=== PATIENT | male | born 1950 | race Caucasian/White ===

== ENCOUNTER → 2020-05-03 15:41 | Outpatient (BNVA) | payer OTHER, SELFPAY | PROVIDERS: Referring Provider Family Medicine; Visit Provider Podiatrist Foot & Ankle Surgery | DX: M79.672 Pain in left foot (principal) | CPT/HCPCS: 73630 ==

== ENCOUNTER 2020-05-03 16:30 | Outpatient (CLI) | payer OTHER, SELFPAY | END 2020-05-03 16:31 | disposition home or self-care (01) | LOC: SPT 16:31 | PROVIDERS: Visit Provider Podiatrist Foot & Ankle Surgery | DX: Z46.89 Encounter for fitting and adjustment of other specified devices (principal); M65.28 Calcific tendinitis, other site | CPT/HCPCS: 97760; L4397 ==

== ENCOUNTER 2020-05-13 15:47 | Observation (INO) | payer OTHER, SELFPAY ==
[2020-05-13] VITALS (11 sets, daily range): BP systolic 128–174; BP diastolic 90–95; PULSE 102–119; RESP 16–28; TEMP 36.9–37.1; O2SAT 86–95; BMI 23.0
--- NOTE | 2020-05-13 16:17 | ECG_ITS ---
[facility] Test Date: 2020-05-13 Pat Name: Lex Cheng Department: Room: Gender: Male Code Inspector: : 1950 Requested By: Laron Spicer Order Number: [id number] Jani MD: SALLY TRIANA Measurements Intervals [place] Rate: 105 P: 63 FL: 167 QRS: 64 QRSD: 93 T: 6 QT: 321 QTc: 425 Interpretive Statements SINUS TACHYCARDIA POSSIBLE LEFT ATRIAL ENLARGEMENT [-0.1mV P WAVE IN V1/V2] ST DEVIATION AND MODERATE T-WAVE ABNORMALITY, CONSIDER ANTERIOR ISCHEMIA [-0.1+ mV T WAVE IN V3/V4] No previous ECG available for comparison Electronically Signed On 05-14-2020 19:29:37 AUTOMATIC HEAD SAWYER by SALLY TRIANA [id number]
--- NOTE | 2020-05-13 16:17 | XR_ITS ---
WS: [id number] XR chest 1V portable [id number] REASON FOR EXAM: sob FINDINGS: The heart and mediastinum are within normal limits. There is blunting of the right costophrenic angle with flattening of the lateral right hemidiaphragma tic contour. There are interstitial changes in the right lower lung and the left lower lung. There is an old healed fracture of the right clavicle. There are changes of degenerative spondylosis in the mid and lower thoracic spine. XR/XR chest 1V portable [id number] IMPRESSION: Lung and pleural abnormalities as described above. Without prior films definiti ve diagnosis is limited however these changes are more likely chronic in nature .
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
[2020-05-13 17:05] LABS: ABG PCO2 56.5 mmHg (35-45); Arterial Blood Gas Hematocrit 50.5 % (42-52); Blood Gas Allen Test Pos; Blood Gas Sample Type Arterial; Carboxyhemoglobin 4.2 %THgb (0.4-20.1); HGB O2 Sat 89.2 % (95-100); Methemoglobin 0.3 % (0.4-1.5); PO2 ABG 59.3 mmHg (80.0-100.0); Total Hemoglobin 16.5 g/dL (14-18)
[2020-05-13 17:07] LABS: HCO3 ABG 35.1 mmol/L (22-26)
[2020-05-13 17:08] LABS: Blood Gas Operator Identificat ED; Blood Gas Sample Site Radial, left; Oxygen Device NC
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
[2020-05-13 18:11] LABS: SARS Covid-2 Antigen Negative (Negative)
[2020-05-13 18:31] LABS: Basophils # 0.1 10^3/uL (0.0-0.1); Basophils % 0.6 %; Eosinophils # 0.1 10^3/uL (0.0-0.8); Eosinophils % 1.1 %; Hematocrit 56.5 % (42.0-52.0); Hemoglobin 16.8 g/dL (11.7-16.6); Lymphocytes % 10.4 %; Mean Corpuscular HGB Conc 29.7 g/dL (30.0-36.0); Mean Corpuscular Hemoglobin 28.3 pg (28.0-34.0); Mean Corpuscular Volume 95.3 fL (80-94); Mean Platelet Volume 9.1 fL (7.4-10.4); Monocytes # 0.6 10^3/uL (0.2-0.9); Monocytes % 6.3 %; Neutrophils # 8.01 10^3/uL (1.8-7.7); Neutrophils % 81.3 %; Nucleated Red Blood Cells % 0 %; Platelet Count 252 10^3/cmm (130-400); Red Blood Count 5.93 10^6/uL (4.1-5.3); Red Cell Distribution Width 12.9 % (12.1-15.1); White Blood Count 9.9 10^3/uL (4.0-10.0)
[2020-05-13] MEDS: sodium chloride 0.9% 1,000 ML 999 ML IV (18:45)
[2020-05-13 19:07] LABS: Alanine Aminotransferase 13 U/L (0-41); Albumin Level 3.7 g/dL (3.5-5.2); Alkaline Phosphatase 122 IU/L (40-130); Blood Urea Nitrogen 11 mg/dL (8-23); Calcium 9.4 mg/dL (8.5-10.5); Carbon Dioxide 30 mmol/L (22-29); Chloride 96 mmol/L (98-107); Globulin 3.2 g/dL (1.3-4.6); Glomerular Filtration Rate 54.6 mL/min (90-130); Glucose 137 mg/dL (65-115); NT Pro B Type Natriuretic Pept 2079 pg/mL (0-125); Osmolality Calculated 286 mOsm/kg (285-295); Sodium 137 mmol/L (136-145); Total Bilirubin 0.9 mg/dL (0.15-1.2); Total Protein 6.9 g/dL (6.6-8.7)
[2020-05-13 19:34] LABS: Anion Gap 15.3 (5-19); Aspartate Amino Transferase 15 U/L (0-40); Potassium 4.3 mmol/L (3.5-5.1)
[2020-05-13] MEDS: ipratropium-albuterol 3 mL Neb INHALATION (19:34)
[2020-05-13] MEDS: iodixanol 320 mg/mL 100mL Btl IV (19:56)
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
--- NOTE | 2020-05-13 22:34 | PC.NURSE ---
pt report called to Maribel PARKER in SBAR format.
[2020-05-13 23:22] LABS: Troponin(5th) Baseline 32 ng/L (0-15)
[2020-05-14] VITALS (10 sets, daily range): BP systolic 131–198; BP diastolic 83–110; PULSE 92–106; RESP 18–23; TEMP 36.7–36.9; O2SAT 88–98
[2020-05-14 00:11] LABS: Procalcitonin 0.06 ng/mL (0-0.5)
[2020-05-14] MEDS: doxycycline 100 MG in sodium chloride 0.9% (plus) 100 ML IV ×2 (00:28→11:16)
[2020-05-14] MEDS: enoxaparin 40 mg/0.4 mL Syringe SUBCUT (00:29)
[2020-05-14] MEDS: atorvastatin 40 mg Tablet PO (00:29)
[2020-05-14] MEDS: FUROsemide 10 mg/mL SDV 4mL 40 MG IVP (00:41)
--- NOTE | 2020-05-14 03:37 | ECG_ITS ---
[facility] Test Date: 2020-05-14 Pat Name: Lex Cheng Department: Room: 271 Gender: Male Computer Support Technician: : 1950 Requested By: Kade Flaherty Order Number: [id number] Jani MD: SALLY TRIANA Measurements Intervals [place] Rate: 106 P: 60 CT: 174 QRS: 71 QRSD: 94 T: 41 QT: 320 QTc: 426 Interpretive Statements SINUS TACHYCARDIA POSSIBLE LEFT ATRIAL ENLARGEMENT [-0.1mV P WAVE IN V1/V2] ABNORMAL RHYTHM ECG INTERPRETATION BASED ON A DEFAULT AGE OF 40 YEARS Compared to ECG 05/13/2020 16:27:15 T-wave abnormality no longer present Possible ischemia no longer present Electronically Signed On 05-14-2020 19:33:25 STUDIO DESIGNER by SALLY TRIANA [id number]
--- NOTE | 2020-05-14 03:50 | PC.NURSE ---
Patient's laying in the bed. Patient's blood pressure has been checked with manual blood pressure cuff. Patient's blood pressure on the left arm is 198/110 and on the right arm is 192/104. Patient stated usually take blood pressure medicine but haven't had one tonight. Patient's nurse Maribel been notified.
[2020-05-14] MEDS: labetalol 5 mg/mL SDV 20mL 10 MG IVP (04:55)
[2020-05-14] MEDS: dilTIAZem ER (24HR) 240 mg Capsule PO (06:25)
[2020-05-14 06:31] LABS: Glucose Point of Care 215 mg/dL (70-110)
[2020-05-14 07:17] LABS: Basophils % 0.1 %; Hematocrit 52.9 % (42.0-52.0); Hemoglobin 15.9 g/dL (11.7-16.6); Lymphocytes # 0.3 10^3/uL (0.8-4.8); Lymphocytes % 3.4 %; Mean Corpuscular HGB Conc 30.1 g/dL (30.0-36.0); Mean Corpuscular Hemoglobin 28.9 pg (28.0-34.0); Mean Corpuscular Volume 96.2 fL (80-94); Mean Platelet Volume 9.4 fL (7.4-10.4); Monocytes # 0.1 10^3/uL (0.2-0.9); Monocytes % 1.1 %; Neutrophils # 7.46 10^3/uL (1.8-7.7); Nucleated Red Blood Cells % 0 %; Platelet Count 300 10^3/cmm (130-400); Red Cell Distribution Width 12.8 % (12.1-15.1); White Blood Count 7.9 10^3/uL (4.0-10.0)
[2020-05-14 07:42] LABS: Troponin 5 6HR 22.92 ng/L (0-15)
[2020-05-14 07:50] LABS: Alanine Aminotransferase 11 U/L (0-41); Albumin Level 3.5 g/dL (3.5-5.2); Alkaline Phosphatase 109 IU/L (40-130); Anion Gap 15.1 (5-19); Aspartate Amino Transferase 11 U/L (0-40); Blood Urea Nitrogen 17 mg/dL (8-23); Calcium 9.2 mg/dL (8.5-10.5); Carbon Dioxide 32 mmol/L (22-29); Chloride 89 mmol/L (98-107); Glomerular Filtration Rate 66.2 mL/min (90-130); Glucose 203 mg/dL (65-115); Magnesium 1.6 mg/dL (1.7-2.3); Osmolality Calculated 281 mOsm/kg (285-295); Phosphorus 4.5 mg/dL (2.5-4.5); Potassium 4.1 mmol/L (3.5-5.1); Sodium 132 mmol/L (136-145); Thyroid Stimulating Hormone 1.12 uIU/mL (0.27-4.20); Total Bilirubin 0.7 mg/dL (0.15-1.2); Total Protein 6.5 g/dL (6.6-8.7)
[2020-05-14 07:55] LABS: Estmated Average Glucose 131; Hemoglobin A1C 6.2 % (4.0-6.0)
[2020-05-14 07:56] LABS: Troponin 5 6HR Delta -9.08 ng/L (0-12)
[2020-05-14] MEDS: albuterol 8 gm MDI 2 PUFF INHALATION ×3 (08:23→11:20)
[2020-05-14 08:33] LABS: Chol HDL Ratio 2.81 mg/dL (1.0-5.00); Cholesterol 132 mg/dL (0-200); HDL Cholesterol 47 mg/dL (60-100); LDL Cholesterol Calculated 66 mg/dL (50-129); Triglycerides 94 mg/dL (0-150)
[2020-05-14] MEDS: losartan 50 mg Tablet 100 MG PO (08:43)
[2020-05-14] MEDS: finasteride 5 mg Tablet PO (08:45)
[2020-05-14] MEDS: hydroCHLOROthiazide 25 mg Tablet PO (08:46)
[2020-05-14] MEDS: aspirin 81 mg EC Tablet PO (08:46)
[2020-05-14] MEDS: ALPRAZolam 0.25 mg Tablet PO (11:16)
[2020-05-14 11:35] LABS: Glucose Point of Care 204 mg/dL (70-110)
--- NOTE | 2020-05-14 15:09 | PC.NURSE ---
patients discharge instructions were given to him and he was educated on his medications and his illness. We told him we were waiting on his oxygen to be delivered for him to take home. He stated I don't need it, I've been without it for 2 months now and I want out of here! Risks were explained to patient about what may happen if his oxygen saturation drops and the risk he would be taking leaving with out oxygen. He told me I don't care, I'm not waiting. I want to leave. I don't need it. Dr. Levine notified, patient was discharged.
--- NOTE | 2020-05-14 15:33 | PC.RESP ---
Smoking Cessation information sent to patient.
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
[2020-05-14 17:08] LABS: Coronavirus Lab Test PTC Negative
--- NOTE | 2020-05-14 22:51 | USCV_ITS ---
Cheng Lex Age: 70 Gender: M : 1950 Exam Date: 05/14/2020 06:45 Ordering Phys: Kade Flaherty MD Technologist: Bucky Tavares Exam Location: [facility] [place] Indication: SOB BP: 198 / 110 HR: 95 Rhythm: Sinus Technical Quality: Technically difficult study MEASUREMENTS (Male / Female) Normal Values 2D ECHO LV Diastolic Diameter PLAX 4.5 cm 4.2 - 5.9 / 3.9 - 5.3 cm LV Systolic Diameter PLAX 2.3 cm IVS Diastolic Thickness 1.0 cm 0.6 - 1.0 / 0.6 - 0.9 cm IVS Systolic Thickness 1.3 cm LVPW Diastolic Thickness 1.1 cm 0.6 - 1.0 / 0.6 - 0.9 cm LVPW Systolic Thickness 1.2 cm LVOT Diameter 2.0 cm LV Ejection Fraction 2D Teich 78.6 % LV Ejection Fraction MOD 2C 60.7 % LV Ejection Fraction 2C AL 61.4 % LA Diameter 3.6 cm LA Width 3.5 cm LA Height 4.9 cm RA Width 3.9 cm RA Height 5.1 cm Aorta at Sinotubular Diameter 1.2 cm M-MODE LV Diastolic Diameter MM 6.1 cm 4.2 - 5.9 / 3.9 - 5.3 cm LV Systolic Diameter MM 4.1 cm LV Ejection Fraction MM Teich 60.4 % IVS Diastolic Thickness MM 0.9 cm 0.6 - 1.0 / 0.6 - 0.9 cm IVS Systolic Thickness MM 1.6 cm LVPW Diastolic Thickness MM 1.5 cm 0.6 - 1.0 / 0.6 - 0.9 cm LVPW Systolic Thickness MM 1.9 cm RV Diastolic Diameter MM 1.5 cm Aortic Annulus Diameter 4.3 cm LA Ao Ratio MM 0.9 MV E Point Septal Separation 1.1 cm DOPPLER AV Peak Velocity 139.0 cm/s LVOT Peak Velocity 99.0 cm/s AV Area Cont Eq vti 2.3 cm squared AV Area Cont Eq pk 2.2 cm squared MV Area PHT 5.0 cm squared Mitral E to A Ratio 0.7 MV E' Velocity 50.5 cm/s Mitral E to MV E' Ratio 11.8 Mitral E to LV E' Lateral Ratio 12.0 Mitral E to LV E' Septal Ratio 11.8 TR Peak Velocity 146.0 cm/s TR Peak Gradient 8.5 mmHg TV Peak E Velocity 89.0 cm/s Right Atrial Pressure 3.0 mmHg Pulmonary Artery Systolic Pressu 11.5 mmHg FINDINGS Left Ventricle Normal left ventricular size, systolic function and wall thickness, with no regional wall motion abnormalities. Left ventricular ejection fraction is estimated at 63 %. Normal diastolic function. Right Ventricle Normal right ventricular size and systolic function. Right ventricular systolic pressure 11.5 mmHg. Right Atrium Normal right atrial size. Left Atrium Normal left atrial size. Mitral Valve Structurally normal mitral valve. No mitral valve stenosis. No mitral valve regurgitation. Aortic Valve Structurally normal trileaflet aortic valve. No aortic valve stenosis. No aortic valve regurgitation. Tricuspid Valve Structurally normal tricuspid valve. No tricuspid valve stenosis. Trace tricuspid valve regurgitation. Pulmonic Valve Pulmonic valve not well visualized. No pulmonary valve regurgitation. Pericardium No pericardial effusion. Aorta Normal size aortic root and proximal ascending aorta. Normal sized inferior vena cava. CONCLUSIONS 1. Normal left ventricular size, systolic function and wall thickness, with no regional wall motion abnormalities. Left ventricular ejection fraction is estimated at 63 %. Normal diastolic function. 2. Normal right ventricular size and systolic function. 3. Normal pulmonary artery pressure. 4. No significant valvular abnormality. 5. No prior similar studies to compare. Nina Leon MD (Electronically Signed) Final Date: 15 May 2020 09:52 S
== END 2020-05-14 15:27 | disposition home or self-care (01) ==
LOC: ER 21:27 → MEDSURG 05-14 06:31
PROVIDERS: Emergency Medicine; Admitting Provider Family Medicine; Visit Provider Student in an Organized Health Care Education/Training Program
DX: R06.02 Shortness of breath (principal); E11.42 Type 2 diabetes mellitus with diabetic polyneuropathy; I10 Essential (primary) hypertension; E78.00 Pure hypercholesterolemia, unspecified; J44.1 Chronic obstructive pulmonary disease with (acute) exacerbation; R00.0 Tachycardia, unspecified; E78.5 Hyperlipidemia, unspecified; Z79.84 Long term (current) use of oral hypoglycemic drugs; Z79.82 Long term (current) use of aspirin; F17.210 Nicotine dependence, cigarettes, uncomplicated
CPT/HCPCS: 12345; 36415; 36416; 36600; 71045; 71275; 80053; 80061; 82805; 82962; 83036; 83735; 83880; 84100; 84145; 84443; 84484; 85025; 87426; 87635; 93005; 93306; 94640; 94664; 96361; 96365; 96372; 96374; 96375; 99284; 99285; G0378; J1650; J1815; J1940; J2920; J2930; J3490; J3535; J7030; J7611; Q9967